=== PATIENT | male | born 2000 | race African-American/Black ===

== ENCOUNTER 2024-01-27 23:51 | Emergency (ER) | payer MEDICAID ==
[~2024-01-27] VITALS: Ht 175.3 cm; Wt 77.3 kg
[2024-01-27 23:55] VITALS: TEMP 99
[2024-01-28 00:28] LABS: BASOPHILS % (AUTO) 0.2 % (0.0-2.0); EOSINOPHILS % (AUTO) 0.7 % (1.0-6.0); HEMATOCRIT 47.9 % (41-53); HEMOGLOBIN 15.7 g/dL (13.5-17.5); LYMPHOCYTES # (AUTO) 0.6 K/uL (1.0-4.8); LYMPHOCYTES % (AUTO) 8.6 % (22.0-44.0); MEAN CORPUSCULAR HEMOGLOBIN 26.8 pg (26.0-34.0); MEAN CORPUSCULAR HGB CONC 32.7 G/dL (31.0-37.0); MEAN CORPUSCULAR VOLUME 82 fL (80-100); MONOCYTES # (AUTO) 0.4 K/uL (0.1-1.0); MONOCYTES % (AUTO) 5.3 % (2.0-9.0); NEUTROPHILS # (AUTO) 5.9 K/uL (1.8-7.7); PLATELET COUNT (AUTO) 234 K/uL (150-450); RED BLOOD CELL COUNT(AUTO) 5.84 MIL/uL (4.50-5.90); RED CELL DISTRIBUTION WIDTH 13.8 % (11.5-14.5)
[2024-01-28 00:31] LABS: NEUTROPHILS % (AUTO) 85.2 % (40.0-70.0)
[2024-01-28 00:35] LABS: ANION GAP 0 mmol/L (8-16); CALCIUM, TOTAL 9.2 mg/dL (8.8-10.5); CARBON DIOXIDE 36 mmol/L (22-29); CHLORIDE 100 mmol/L (98-107); CREATININE 1.01 mg/dL (0.60-1.30); GLOMERULAR FILTR. RATE CALC > 60 mL/min (>60); GLUCOSE,RANDOM 115 mg/dL (70-110); POTASSIUM 4.4 mmol/L (3.5-5.1); SODIUM SERUM 136 mmol/L (136-145); UREA NITROGEN, BLOOD 14 mg/dL (7-18)
[2024-01-28 00:37] LABS: APPEARANCE,URINE CLEAR (CLEAR); BILIRUBIN,URINE NEGATIVE (NEGATIVE); COLOR,URINE LIGHT YELLOW (YELLOW); GLUCOSE, URINE (UA) NEGATIVE (NEGATIVE); KETONES,URINE NEGATIVE (NEGATIVE); LEUKOCYTE ESTERASE ,URINE NEGATIVE (NEGATIVE); NITRATE,URINE NEGATIVE (NEGATIVE); OCCULT BLOOD,URINE NEGATIVE (NEGATIVE); PH,URINE 5.5 (5.0-8.0); PROTEIN,URINE NEGATIVE (NEGATIVE); UROBILINOGEN,URINE <=1.0 mg/dL (<=1.0)
[2024-01-28 00:41] LABS: ALANINE AMINOTRANSFERASE 52 U/L (12-78); ALBUMIN 3.9 g/dL (3.4-5.0); ALKALINE PHOSPHATASE 60 U/L (46-116); ASPARTATE AMINOTRANSFERASE 33 U/L (15-37); BILIRUBIN,TOTAL 0.7 mg/dL (0.1-1.0); LIPASE 79 U/L (16-77); PHOSPHORUS 4.4 mg/dL (2.5-4.9); TOTAL PROTEIN, SERUM 7.5 g/dL (6.4-8.2)
[2024-01-28] MEDS: SODIUM CHLORIDE 0.9% 1,000 ML IV ONE (00:43)
[2024-01-28] MEDS: MAG HYDROX/ALUMINUM HYD/SIMETH 30 ML SUSPENSION UDCUP PO ONE (00:43)
[2024-01-28] MEDS: ACETAMINOPHEN 500 MG TABLET PO ONE (00:44)
[2024-01-28] MEDS: FAMOTIDINE 20 MG/2 ML VIAL IVP ONE (00:47)
[2024-01-28] MEDS: KETOROLAC TROMETHAMINE 30 MG/ML VIAL IVP ONE (00:48)
[2024-01-28] MEDS ORDERED: SODIUM CHLORIDE 0.9% 100 ML ONE (01:08)
[2024-01-28] MEDS ORDERED: IOHEXOL 350 MG/ML 100 ML VIAL ONE (01:08)
[2024-01-28 01:23] LABS: LACTIC ACID 1.9 mmol/L (0.4-2.0)
[2024-01-28] MEDS ORDERED: ACET-3385 PO (03:13)
[2024-01-28 03:29] VITALS: BP 127/80; PULSE 87; RESP 18
== END 2024-01-28 03:30 | disposition home or self-care (01) ==
LOC: EMS 23:53
DX: R19.7 Diarrhea, unspecified (principal); R10.33 Periumbilical pain
CPT/HCPCS: 99285; 80048; 80076; 81003; 83605; 83690; 83735; 84100; 85025; 36415; 74177; 96374; 96361; 96375; Q9967; J3490; J1885; J7030; J7050